=== PATIENT | female | born 1975 ===

== ENCOUNTER 2017-03-24 13:12 | Emergency (ER) | payer BC ==
[2017-03-24 13:28] VITALS: BP 138/73
--- NOTE | 2017-03-24 14:56 | UC ---
Back Pain HPI - HPI Summary HPI Summary: pain in the left low back/SI joint area for the past 4 days, with gradual onset over the course of the day. No weakness or paresthesias. No precipitating injury or activity, and no previous hx of low back pain. Stayed off work yesterday due to pain No urinary tract symptoms. On depo, amenorrheic. - History of Current Complaint Chief Complaint: UCBackPain Stated Complaint: LOW BACK PAIN Time Seen by Provider: 03/24/17 13:35 Hx Obtained From: Patient Hx Last Menstrual Period: 3 yrs ?: No Onset/Duration: Gradual Onset, Lasting Days - 4 Timing: Constant Severity Initially: Moderate Severity Currently: Moderate Pain Intensity: 7 Pain Scale Used: 0-10 Numeric Back Pain: Is Discrete @ - sacral area. Character: Aching, Throbbing Aggravating: Movement, Lifting Alleviating: Rest, OTC Meds - using ibuprofen 400mg twice daily Associated Signs And Symptoms: Positive: Negative - Risk Factors AAA Risk Factors: Negative TAD Risk Factors: Negative Cauda Equina Risk Factors: Negative Epidural Abscess Risk Factors: Negative - Allergies/Home Medications Allergies/Adverse Reactions: Allergies Allergy/AdvReac Type Severity Reaction Status Date / Time Cephalexin [From Keflex] Allergy Mild Hives Verified 03/24/17 13:28 Home Medications: Home Medications Ibuprofen TAB* [Advil TAB*] 400 mg PO Q6H PRN 03/24/17 [History Confirmed ] PMH/Surg Hx/FS Hx/Imm Hx Previously Healthy: Yes - Surgical History Surgical History: None - Family History Known Family History: Positive: Other - father with sciatica, brother with degenerative disk disease. 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 Alcohol Use: Weekly Alcohol Amount: 7-8 Substance Use Type: None Smoking Status (MU): Never Smoked Tobacco Review of Systems Constitutional: Negative - No sleep disruption. Skin: Negative Eyes: Negative ENT: Negative Respiratory: Negative Cardiovascular: Negative Gastrointestinal: Other - stools are normal Genitourinary: Other - no frequency, urgency or hx of UTI s amenorrheic with depo Motor: Negative Neurovascular: Negative Musculoskeletal: Negative Neurological: Negative Psychological: Negative All Other Systems Reviewed And Are Negative: Yes Physical Exam Triage Information Reviewed: Yes Appearance: Well-Appearing, Pain Distress - uncomfortable with movement., Obese Vital Signs: Initial Vital Signs Temp 99.1 F 03/24/17 13:19 Pulse 62 03/24/17 13:19 Resp 20 03/24/17 13:19 BP 138/73 03/24/17 13:19 Vital Signs Reviewed: Yes ENT Exam: Normal Neck exam: Normal Neck: Positive: Nontender, No Lymphadenopathy Respiratory: Positive: Lungs clear, Normal breath sounds Cardiovascular: Positive: RRR, No Murmur Abdomen Description: Positive: Nontender, No Organomegaly Musculoskeletal: Positive: Strength Intact, ROM Limited @ - lumbar spine with FF to 60 degrees, pain with movement. Pain in left SI joint with rotation to the right, pain with lateral bending. SLR to 90 degrees. Neurological: Positive: Muscle Tone Normal, Other: - DTR's 1-2 + Skin Exam: Normal Back Pain Course/Dx - Course Course Of Treatment: naproxen and muscle relaxants for low back pain. - Differential Dx/Diagnosis Differential Diagnosis/HQI/PQRI: Herniated Disc, Strain, Sprain Provider Diagnoses: low back, SI joint strain. Discharge - Discharge Plan Condition: Stable Disposition: HOME Prescriptions: Cyclobenzaprine TAB* [Flexeril 10 MG TAB*] 10 mg PO BID PRN #20 tab PRN Reason: Spasms - Back Naproxen TAB* [Naprosyn 250 mg TAB*] 500 mg PO BID PRN #30 tab PRN Reason: Pain - Back Patient Education Materials: Acute Low Back Pain (ED) Forms: *Work Release
== END 2017-03-24 15:06 | disposition home or self-care (01) ==
LOC: UCCORT 13:12
DX: S33.5XXA Sprain of ligaments of lumbar spine, initial encounter (principal); S33.6XXA Sprain of sacroiliac joint, initial encounter; X58.XXXA Exposure to other specified factors, initial encounter; Y93.9 Activity, unspecified; Y92.9 Unspecified place or not applicable; Z32.02 Encounter for pregnancy test, result negative; E66.9 Obesity, unspecified
CPT/HCPCS: 81003; 84702; 99202; G0463